=== PATIENT | female | born 1985 | race Caucasian/White ===

== ENCOUNTER 2018-09-21 19:23 | Emergency (ER) | payer MEDICAID, SELFPAY ==
--- NOTE | 2018-09-21 19:27 | NUR.NOTE ---
Nursing Note: pt has been experiencing N/V/D since Wednesday pt went to [facility] on Wednesday and was told that it was a viral infection and there was nothing the can do pt states those fuckers are idiots so pt came to [facility]
[2018-09-21 19:29] VITALS: BP 138/84; PULSE 93; RESP 17; TEMP 36.7; O2SAT 100
--- NOTE | 2018-09-21 19:34 | W.ED.GENAD ---
Discharge Plan Disposition Patient Disposition: HOME Condition: Improving Discharge Details Chief Complaint: Nausea/Vomit/Diar Clinical Impression: Migraine, Nausea & vomiting Primary Care Provider: None,None ED Provider: Keli Orellana Home Meds and New Rx's Prescriptions: New ondansetron 4 mg tablet,disintegrating 4 mg PO Q6H PRN (Reason: nausea and vomiting) Qty: 10 RF: 0 Discharge Instructions Instructions: Migraine Headache (ED), Acute Nausea and Vomiting (ED) Additional Instructions: Encourage hydration. May continue with Tylenol and/or Ibuprofen as needed for discomfort. Next Ibuprofen dose should not be before 5AM. May use Zofran as prescribed for nausea if this reoccurs. Rest. I have asked our health care facilities inspector to help establish primary care provider with prompt follow up appointment. If you develop fevers/chills, increased pain, inability to stay hydrated, rash, increased abdominal pain or other new/worsening symptoms please seek care urgently once again. Stand Alone Forms: Work Release Discharge Data Discharge Date/Time-TO BE ENTERED AT DEPARTURE: 09/21/18 22:13 Medical Decision Making Patient presents today with c/c of nausea and vomiting for the past 5 days. Had fever 2 days ago, none today. Endorsing abdominal pain, states fairly diffuse, worse in the RLQ.Reports she initially had soft BM but that this has since resolved. No previous abdominal surgeries. Was seen at [facility] ER on Wednesday at which time she rpeorts labs were normal. Will obtain their notes. Reports no change in urinary habits. On exam, patient appears fatigued and uncomfortable. She is laying in position. She has tenderness RLQ, no peritoneal findings. Lungs are clear. No rash. Right sided CVA tenderness. Plan for imaging and labs. She is currently nauseated, will give odt zofran. Labs reviewed. Plt count low at 115, no previous to compare to. No electrolye abnormalities. No leukocytosis. CT reviewed by radiologist: Liver: Hepatomegaly. No mass. Gallbladder and bile ducts: Normal. No calcified stones. No ductal dilation. Pancreas: Normal. No ductal dilation. Spleen: Normal. No splenomegaly. Adrenals: Normal. No mass. Kidneys and ureters: Lesions too small to characterize in the kidneys. No hydronephrosis. Stomach and bowel: Normal. No obstruction. No mucosal thickening. Appendix: No evidence of appendicitis. Intraperitoneal space: There is no free intraperitoneal air. Vasculature: Normal. No abdominal aortic aneurysm. Lymph nodes: Normal. No enlarged lymph nodes. Bladder: Unremarkable as visualized. Reproductive: IUD appears in satisfactory position. Anteverted uterus. Ovaries appear normal. Bones/joints: No acute fracture. No dislocation. Soft tissues: Unremarkable. IMPRESSION: Hepatomegaly. Reviewed recent note from [facility]. At that time patient was endorsing migraine. She had not complained about this to be but when questioned about her migraine, states that the migraine has been consistent and remains severe throughout her course of illness. Nausea is improved but persists slgihtly. Will give compazine and benadryl. UA pending. No nuchal rigitidy. Neuro exam is without acute abnormality. Patient feeling fatigued by improved inregard to NAM and nausea after compazine and benadryl. REports she has had migraines for several years. Will give Toradol and Dexamethasone prior to discharge. She does not have a PCP, have asked our health care facilities inspector to help with f/u appointment. As she has beeh vomiting for the past 5 days has had an intractable migraine, would like prompt f/u at the end of the week for reevaluation. She has had no vomiting while here. Hoping that breaking the migraine will help with her GI upset. VS remain WNL. She is resting comfortably. Was able to ambulate out of the department without signs of discomfort. She was given strict return precautions. Prescribed zofran for any recurrence of her nausea. Is able to hydrate here. All of her questions and concerns were addressed, she is in agreement with this plan. HPI General Mode of arrival: ambulatory. Date/Time Provider Initiated Documentation: 09/21/18 19:34. Limitations to Documentation: no limitations. Information obtained by: patient, family () and RN notes reviewed. HPI Narrative: Patient is a 33 year old otherwise healthy female, presenting toay with c/c of N/V and RLQ pain. States that she awoke 4 days ago with discomfort and N/V. Endorses 1 episode of emesis today, denies hematemesis. Staes that she had episodes of soft stools but that seems to have slowed. No BM today. Denies melena. States that she has had increased vaginal discharge. No pain or itching. States she has been febrile with T max 101.5 on Wednesday. Sttes she was seen at [facility] ED on Wednesday at which times labs were completed, she does not know of any abnormalities. No previous abdominal surgeries. Patient has IUD in place. Pain does not radiate. Pain worse with movement. Diminished appetite. Currently endorsing nausea. Related Data Home Medications Medication Instructions Recorded Confirmed ondansetron 4 mg PO Q6H PRN #10 tab 09/21/18 Previous Rx's Medication Instructions Recorded ondansetron 4 mg PO Q6H PRN #10 tab 09/21/18 Allergies Allergy/AdvReac Type Severity Reaction Status Date / Time amoxicillin [Amoxicillin] Allergy Severe hives Unverified 09/21/18 19:31 Penicillins Allergy Severe hives Unverified 09/21/18 19:31 General Stated Complaint: Nausea/Vomit/Diar CORWIN: 4 Review of Systems Constitutional Reports as per HPI, Reports chills, Reports fatigue, Reports fever(s), Reports malaise and Reports poor appetite Cardiovascular Reports as per HPI, Denies chest pain and Denies dyspnea Respiratory Reports as per HPI, Denies cough and Denies dyspnea Gastrointestinal Reports as per HPI Genitourinary Reports as per HPI, Denies abnormal vaginal bleeding, Denies hematuria, Denies urinary frequency, Denies genital pruritis, Denies genital lesions, Denies dysuria, Denies pelvic pain, Denies urinary urgency and Reports vaginal discharge Musculoskeletal Reports as per HPI and Denies back pain Integumentary/Breasts Reports as per HPI and Denies rash Neurologic Reports as per HPI Endocrine Reports fatigue PFSH Family History Mother Multiple sclerosis Grandfather Diabetes Grandmother Diabetes Social History Smoking/Tobacco Use Status: Current every day Tobacco Type: cigarettes Alcohol Intake: current Alcohol Intake frequency: a few times a month Alcohol type: beer Drug use: Never Substance use type: does not use Do you feel safe at home: Yes Do you feel safe in your relationship?: Yes Exam Const General: cooperative, healthy appearing, uncomfortable (patient appears uncomfortable), no acute distress and well developed Nutritional Appearance: average body habitus and well nourished Orientation: alert and awake HENMT Head: normal to inspection and normocephalic Ears: hearing grossly normal bilaterally Face and sinus: normal facial exam and face symmetric Mouth: mucous membranes dry (patient appears dehydrated) Neck Neck: normal visual inspection, no lymphadenopathy and no meningeal signs Resp Effort & Inspection: normal respiratory effort, able to speak in complete sentences and no respiratory distress Auscultation: clear to auscultation bilaterally, no rales, no rhonchi and no wheezes Cardio Rate: regular rate Rhythm: regular rhythm Heart Sounds: S1 normal and S2 normal GI Palpation: soft, no hepatosplenomegaly, not firm, no guarding, no hernias and tender in the RLQ and at McBurney's point; not suprapubicly, Bryant's sign negative, obturator sign negative, psoas sign negative and with no rebound tenderness Percussion: normal to percussion Auscultation: hypoactive bowel sounds Back/Spine/Pelvis Back: CVA tenderness (right side) Skin General skin exam: no rashes or lesions noted Trauma: no lacerations or abrasions Neuro General: alert and awake Cognition: normal cognition Speech: speech normal Gait: normal gait Psych Appearance: grossly normal and well kempt Mental Status: mental status grossly normal Speech and Movement: speech and movement normal Course Vital Signs Temperature 36.7 C 09/21/18 19:29 Pulse 93 H 09/21/18 19:29 Respiratory Rate 17 09/21/18 19:29 Blood Pressure 138/84 09/21/18 19:29 Pulse Oximetry 100 09/21/18 19:29 Temperature 36.7 C 09/21/18 19:29 Temperature Source Skin 09/21/18 19:29 Pulse 93 H 09/21/18 19:29 Respiratory Rate 17 09/21/18 19:29 Respiratory Effort 09/21/18 19:31 Blood Pressure 138/84 09/21/18 19:29 Blood Pressure Position Supine 09/21/18 19:29 Pulse Oximetry 100 09/21/18 19:29 Oxygen Delivery Method Room Air 09/21/18 19:29 Oxygen Flow Rate 0 09/21/18 19:29 Pain Level 6 09/21/18 19:29
[2018-09-21] MEDS: Ondansetron O.D.T. 4 MG TABEF (19:51)
[2018-09-21] MEDS: Normal Saline 1,000 ML 1000 ML IV (19:51)
[2018-09-21 19:54] LABS: HCT 37.6 % (36.0-46.0); HGB 12.9 g/dL (12.0-15.5); Mean Corp. HGB Concentration 34.3 g/dL (32.0-36.0); Mean Corpuscular Hemoglobin 30.6 pg (27.0-33.0); Mean Corpuscular Volume 89.1 fL (80-95); Mean Platelet Volume 9.9 fL (8.0-11.0); RBC 4.22 m/cumm (4.00-5.20); White Blood Cell Count 3.66 k/cumm (4.4-10.8)
[2018-09-21] MEDS: Omnipaque 350 MG/ML 100 ML BTL IJ (19:55)
[2018-09-21 19:59] LABS: Platelet Count 115 x1000/uL (130-400)
--- NOTE | 2018-09-21 20:09 | DI.CT_ITS ---
SYMPTOM/DIAGNOSIS: RLQ PAIN ABDOMINAL AND PELVIC CT: 09/21/18 CT examination of the abdomen and pelvis was performed with a bolus infusion of 100 cc Omnipaque 350. Images obtained through the lung bases are unremarkable. Liver, spleen and pancreas appear intact. Gallbladder and bile ducts are CT normal. Adrenals appear normal bilaterally, There are multiple small low attenuation well circumscribed hepatic lesions consistent with cysts. No hydronephrosis, nephrolithiasis or ureterolithiasis Urinary bladder has a mildly thickened wall and the possibility of cystitis is raised. The appendix is normal. No evidence of bowel obstruction or diverticulitis. No significant abdominal wall hernia. No abdominal or pelvic adenopathy. Abdominal aorta is of normal diameter and the major vascular structures appear intact. [employer]GER structures are unremarkable with an IUD in place in the uterus. CONCLUSION: Question cystitis. Please correlate clinically.
[2018-09-21 20:13] LABS: ALT 48 U/L (12-78); AST 24 U/L (15-37); Albumin 3.5 g/dL (3.4-5.0); Alkaline Phosphatase 82 U/L (46-116); BUN 12 mg/dL (7-18); Bilirubin, Total 0.3 mg/dL (0.2-1.0); CREATININE 0.79 mg/dL (0.55-1.02); Calcium 8.4 mg/dL (8.5-10.1); Chloride 104 mmol/L (98-107); Glucose 123 mg/dL (70-100); Lipase 77 U/L (73-393); Potassium 3.5 mmol/L (3.5-5.1); Sodium 141 mmol/L (136-145); Total Protein 7.1 g/dL (6.4-8.2)
[2018-09-21 20:23] LABS: Absolute Eosinophil Count 0.04 k/cumm (0.0-0.7); Absolute Lymphocyte Count 1.43 k/cumm (1.2-3.4); Absolute Monocyte Count 0.51 k/cumm (0.11-0.7); Absolute Neutrophil Count 1.68 k/cumm (1.2-6.7); Atypical Lymphocytes % 2
[2018-09-21 20:24] LABS: Diff Comment Manual Differential; RBC Morphology Normal
[2018-09-21 20:32] VITALS: BP 114/65; PULSE 94; RESP 16; TEMP 36.7; O2SAT 100
--- NOTE | 2018-09-21 20:32 | DI.VRAD_ITS ---
EXAM: CT Abdomen and Pelvis With Contrast EXAM DATE/TIME: 09/21/2018 7:44 PM CLINICAL HISTORY: 33 years old, female; Abdominal pain; Localized; Right lower quadrant (rlq) TECHNIQUE: Imaging protocol: Axial computed tomography images of the abdomen and pelvis with intravenous contrast. Coronal and sagittal reformatted images were created and reviewed. Radiation optimization: All CT scans at this facility use at least one of these dose optimization techniques: automated exposure control; mA and/or kV adjustment per patient size (includes targeted exams where dose is matched to clinical indication); or iterative reconstruction. Contrast material: [id number];Contrast volume: 84 ml;Contrast route: IV 18G RAC; COMPARISON: No relevant prior studies available. FINDINGS: Liver: Hepatomegaly. No mass. Gallbladder and bile ducts: Normal. No calcified stones. No ductal dilation. Pancreas: Normal. No ductal dilation. Spleen: Normal. No splenomegaly. Adrenals: Normal. No mass. Kidneys and ureters: Lesions too small to characterize in the kidneys. No hydronephrosis. Stomach and bowel: Normal. No obstruction. No mucosal thickening. Appendix: No evidence of appendicitis. Intraperitoneal space: There is no free intraperitoneal air. Vasculature: Normal. No abdominal aortic aneurysm. Lymph nodes: Normal. No enlarged lymph nodes. Bladder: Unremarkable as visualized. Reproductive: IUD appears in satisfactory position. Anteverted uterus. Ovaries appear normal. Bones/joints: No acute fracture. No dislocation. Soft tissues: Unremarkable. IMPRESSION: Hepatomegaly. Dictated and Authenticated by: Abdirashid Patel MD. Ordering:CLARIBEL Dickey MD
[2018-09-21 20:49] LABS: Bilirubin Negative (Negative); Blood Trace-lysed (Negative); Clarity Clear (Clear); Glucose Negative (Negative); Ketones Negative (Negative); Leukocyte Esterase Negative (Negative); Nitrite Negative (Negative); Urobilinogen 0.2 EU/dL (Up TO 0.2)
[2018-09-21 20:59] LABS: Bacteria Negative HPF (Negative); C & S Indicated? No; Casts Negative LPF (Negative); Crystals Negative HPF (Negative); Epithelial Cells Few HPF (Negative); Mucus Negative (Negative); RBC 0-2 (0-2); WBC Negative HPF (0-5)
[2018-09-21] MEDS: diphenhydrAMINE 50 MG/ML VIAL 25 MG IVP (21:05)
[2018-09-21] MEDS: Prochlorperazine 10 MG/2 ML VIAL IVP (21:07)
[2018-09-21] MEDS: Dexamethasone 10 MG/ML VIAL IVP (21:57)
[2018-09-21] MEDS: Ketorolac 15 MG/ML VIAL IVP (21:57)
[2018-09-21 21:59] VITALS: BP 127/81; PULSE 69; RESP 16; TEMP 37.3; O2SAT 99
[2018-09-21] MEDS: Ondansetron O.D.T. 4 MG TABEF 12 MG PO (22:10)
== END 2018-09-21 22:13 | disposition home or self-care (01) ==
PROVIDERS: Emergency Provider Physician Assistant
DX: R11.2 Nausea with vomiting, unspecified (principal); G43.909 Migraine, unspecified, not intractable, without status migrainosus; R10.31 Right lower quadrant pain
CPT/HCPCS: 36415; 80053; 81025; 83690; 96361; 96374; 96375; 99285; 74177; 81003; 81015; 85025; 99284; J0780; J1100; J1200; J1885; J3490